=== PATIENT | female | born 1975 | race Asian ===

== ENCOUNTER 2018-05-09 11:50 | Day surgery (SDC) | payer MEDICARE, MEDICAID ==
[2018-05-06 15:19] LABS: BASOPHILS % (AUTO) 0.5 % (0-1); EOSINOPHILS # (AUTO) 0.1 X10'3 (0-0.9); EOSINOPHILS % (AUTO) 2.1 % (0-6); HEMATOCRIT 32.4 % (35.0-45.0); HEMOGLOBIN 10.6 g/dl (12.0-16.0); LYMPHOCYTES # (AUTO) 0.5 X10'3 (1.1-4.8); LYMPHOCYTES % (AUTO) 9.1 % (21-51); MEAN CORPUSCULAR HEMOGLOBIN 31.3 PG (27.0-31.0); MEAN CORPUSCULAR HGB CONC 32.6 g/dL (33.0-36.5); MEAN CORPUSCULAR VOLUME 96.2 FL (78-98); MEAN PLATELET VOLUME 7.5 FL (7.4-10.4); MONOCYTES # (AUTO) 0.5 X10'3 (0-0.9); NEUTROPHILS % (AUTO) 79.3 % (42-75); PLATELET COUNT 139 X10'3 (140-440); RED BLOOD COUNT 3.37 X10'6 (4.20-5.60); RED CELL DISTRIBUTION WIDTH 18.9 % (11.5-14.5); WHITE BLOOD COUNT 5.1 X10'3 (4.5-11.0)
[2018-05-06 15:28] LABS: ALBUMIN 3.4 G/DL (3.4-5.0); ANION GAP 1 (8-16); BLOOD UREA NITROGEN 34 MG/DL (7-18); BUN/CREATININE RATIO 4.2 (6.6-38.0); CALCIUM 10.1 MG/DL (8.5-10.1); CHLORIDE 97 MMOL/L (99-107); CREATININE 8.06 MG/DL (0.40-0.90); GLUCOSE 136 MG/DL (70-104); POTASSIUM 4.9 MMOL/L (3.5-5.1); SODIUM 137 MMOL/L (135-145); TOTAL CARBON DIOXIDE 38.9 MMOL/L (24-32); eGFR 5 ML/MIN
[2018-05-06 15:31] LABS: PARTIAL THROMBOPLASTIN TIME 30 SECONDS (22-32); PROTHROMBIN TIME 10.5 SECONDS (9.0-12.0)
[2018-05-09] VITALS (9 sets, daily range): BP systolic 151–163; BP diastolic 91–95
[~2018-05-09] VITALS: Ht 147.3 cm; Wt 51.8 kg
[2018-05-09] MEDS ORDERED: diphenhydrAMINE 25mg capsule PO ONE (12:10)
[2018-05-09] MEDS ORDERED: LORazepam 0.5 MG tablet PO ONE (12:10)
[2018-05-09] MEDS ORDERED: normal saline 1000ml 1,000 ML IV SCH (12:10)
[2018-05-09] MEDS ORDERED: ACYC-202 PO (13:37)
[2018-05-09] MEDS ORDERED: TACR1CAP28 PO (13:37)
[2018-05-09] MEDS ORDERED: CHOL100046 PO (13:37)
[2018-05-09] MEDS ORDERED: FOLI0.8T22 PO (13:37)
[2018-05-09] MEDS ORDERED: METO50TA17 PO (13:37)
[2018-05-09] MEDS ORDERED: SODI650T29 PO (13:37)
[2018-05-09] MEDS ORDERED: PRED5TAB PO (13:37)
[2018-05-09] MEDS ORDERED: LEVO50TA PO (13:37)
[2018-05-09] MEDS ORDERED: AMLO-94 PO (13:37)
[2018-05-09] MEDS ORDERED: iohexol 350MG/ML 100ml bottle IV ONE (16:17)
[2018-05-09] MEDS ORDERED: LIDOcaine 1% (10mg/ml)w/preservative injection 20ml MDV ONE (16:17)
[2018-05-09] MEDS ORDERED: midazolam 2 mg/2 ml injection ONE (16:17)
[2018-05-09] MEDS ORDERED: fentaNYL/PF 50MCG/1 ML 2ML syringe ONE (16:17)
[2018-05-09] MEDS ORDERED: hydrALAZINE 20mg/ml inj. IV ONE (17:17)
[2018-05-09] MEDS ORDERED: ondansetron/PF 4mg/2ml inj ONE (17:45)
[2018-05-09] MEDS ORDERED: proCHLORperazine 10 MG/2 ml inj IV PRN (18:00)
[2018-05-09] MEDS ORDERED: ondansetron/PF 4mg/2ml inj IV PRN (18:00)
[2018-05-09] MEDS ORDERED: OXAZEpam 15mg capsule PO PRN (18:00)
== END 2018-05-09 20:15 | disposition home or self-care (01) ==
LOC: SSTAY O 11:50
PROVIDERS: ATTEND Internal Medicine Interventional Cardiology
DX: I25.10 Atherosclerotic heart disease of native coronary artery without angina pectoris (principal)
CPT/HCPCS: 36415; 80048; 85025; 85610; 85730; 93005; 93458; 99152; A6257; J0360; J1644; J2001; J2250; J2405; J3010; J7030; Q9967; A4620; C1769

== ENCOUNTER 2019-04-17 13:54 | Day surgery (SDC) | payer MEDICARE, MEDICAID ==
[2019-04-13 11:14] LABS: BASOPHILS % (AUTO) 0.4 % (0-1); EOSINOPHILS # (AUTO) 0.3 X10'3 (0-0.9); EOSINOPHILS % (AUTO) 3.4 % (0-6); HEMATOCRIT 36.9 % (35.0-45.0); HEMOGLOBIN 12.7 g/dl (12.0-16.0); LYMPHOCYTES # (AUTO) 1.4 X10'3 (1.1-4.8); LYMPHOCYTES % (AUTO) 15.5 % (21-51); MEAN CORPUSCULAR HEMOGLOBIN 36.2 PG (27.0-31.0); MEAN CORPUSCULAR HGB CONC 34.3 g/dL (33.0-36.5); MEAN CORPUSCULAR VOLUME 105.8 FL (78-98); MEAN PLATELET VOLUME 7.3 FL (7.4-10.4); MONOCYTES % (AUTO) 11.6 % (2-12); NEUTROPHILS # (AUTO) 6.2 X10'3 (1.8-7.7); NEUTROPHILS % (AUTO) 69.1 % (42-75); PLATELET COUNT 223 X10'3 (140-440); RED BLOOD COUNT 3.49 X10'6 (4.20-5.60); RED CELL DISTRIBUTION WIDTH 13.1 % (11.5-14.5)
[2019-04-13 11:17] LABS: ALBUMIN 3.4 G/DL (3.4-5.0); ANION GAP 11 (8-16); BLOOD UREA NITROGEN 70 MG/DL (7-18); BUN/CREATININE RATIO 7.7 (6.6-38.0); CALCIUM 10.1 MG/DL (8.5-10.1); CHLORIDE 97 MMOL/L (99-107); CREATININE 9.11 MG/DL (0.40-0.90); GLUCOSE 113 MG/DL (70-104); POTASSIUM 4.8 MMOL/L (3.5-5.1); SODIUM 133 MMOL/L (135-145); TOTAL CARBON DIOXIDE 24.6 MMOL/L (24-32); eGFR 5 ML/MIN
[2019-04-13 11:26] LABS: PARTIAL THROMBOPLASTIN TIME 27 SECONDS (22-32)
[~2019-04-17] VITALS: Ht 144.8 cm; Wt 61.9 kg
[~2019-04-17 13:54] MED LIST: ACYC-202 PO; AMLO-94 PO; CHOL100046 PO; FOLI0.8T22 PO; LEVO50TA PO; METO50TA17 PO; PRED5TAB PO; SODI650T29 PO; TACR1CAP28 PO
[2019-04-17] MEDS ORDERED: diphenhydrAMINE 25mg capsule PO PRN (14:20)
[2019-04-17] MEDS ORDERED: LORazepam 0.5 MG tablet PO PRN (14:20)
[2019-04-17] MEDS ORDERED: normal saline 1,000 ML IV SCH (14:20)
[2019-04-17] MEDS ORDERED: METO100T14 PO (14:21)
[2019-04-17] MEDS ORDERED: SEVE800T8 PO (14:22)
[2019-04-17] MEDS ORDERED: LIDOcaine 1% (10mg/ml)w/preservative injection 20ml MDV ONE (16:04)
[2019-04-17] MEDS ORDERED: midazolam 2 mg/2 ml injection ONE (16:04)
[2019-04-17] MEDS ORDERED: fentaNYL/PF 50MCG/1 ML 2ML syringe ONE (16:04)
[2019-04-17] MEDS ORDERED: iohexol 350MG/ML 100ml bottle IV ONE ×2 (16:04→17:03)
--- NOTE | 2019-04-17 16:26 | NUR ---
Patient to OR via luis with technical laboratory asst RN.
[2019-04-17] MEDS ORDERED: ondansetron/PF 4mg/2ml inj ONE (17:13)
[2019-04-17 17:30] VITALS: BP 141/75
--- NOTE | 2019-04-17 17:35 | NUR ---
Pt returned from lab assistant via [place]. vss, awake and alert. c/o nausea, given zofran in lab assistant. Asking for food and ice chips. at bedside
[2019-04-17 17:45] VITALS: BP 127/77
[2019-04-17] MEDS ORDERED: acetaminophen 325mg tablet PO PRN (17:45)
[2019-04-17] MEDS ORDERED: proCHLORperazine 10 MG/2 ml inj IV PRN (17:45)
[2019-04-17] MEDS ORDERED: ondansetron/PF 4mg/2ml inj IV PRN (17:45)
[2019-04-17] MEDS ORDERED: OXAZEpam 15mg capsule PO PRN (17:45)
[2019-04-17 18:00] VITALS: BP 135/74
[2019-04-17 18:15] VITALS: BP 134/75
--- NOTE | 2019-04-17 18:30 | NUR ---
Report given to Erin RIZO
[2019-04-17 19:15] VITALS: BP 106/62
[2019-04-17 20:00] VITALS: BP 100/60
== END 2019-04-17 20:20 | disposition home or self-care (01) ==
LOC: SSTAY O 13:54
PROVIDERS: ATTEND Internal Medicine Interventional Cardiology
DX: Z01.818 Encounter for other preprocedural examination (principal); I25.10 Atherosclerotic heart disease of native coronary artery without angina pectoris; I12.9 Hypertensive chronic kidney disease with stage 1 through stage 4 chronic kidney disease, or unspecified chronic kidney disease; N18.9 Chronic kidney disease, unspecified; I48.91 Unspecified atrial fibrillation; Z88.5 Allergy status to narcotic agent; Z79.899 Other long term (current) drug therapy; Z94.0 Kidney transplant status
CPT/HCPCS: 36415; 80048; 85025; 85610; 85730; 93005; 93458; 93571; 93572; 99152; 99153; C1769; J0780; J1644; J2001; J2250; J2405; J3010; J7030; Q9967; A4620; A6258

== ENCOUNTER 2020-06-11 11:23 | Day surgery (SDC) | payer MEDICARE, MEDICAID ==
[2020-06-06 12:26] LABS: BASOPHILS % (AUTO) 0.5 % (0-1); EOSINOPHILS # (AUTO) 0.1 X10'3 (0-0.9); EOSINOPHILS % (AUTO) 2.4 % (0-6); HEMATOCRIT 37.4 % (35.0-45.0); HEMOGLOBIN 11.9 g/dl (12.0-16.0); LYMPHOCYTES % (AUTO) 17.4 % (21-51); MEAN CORPUSCULAR HEMOGLOBIN 29.4 PG (27.0-31.0); MEAN CORPUSCULAR HGB CONC 31.8 g/dL (33.0-36.5); MEAN CORPUSCULAR VOLUME 92.4 FL (78-98); MEAN PLATELET VOLUME 7.5 FL (7.4-10.4); MONOCYTES # (AUTO) 0.5 X10'3 (0-0.9); MONOCYTES % (AUTO) 7.8 % (2-12); NEUTROPHILS # (AUTO) 4.3 X10'3 (1.8-7.7); NEUTROPHILS % (AUTO) 71.9 % (42-75); PLATELET COUNT 183 X10'3 (140-440); RED BLOOD COUNT 4.05 X10'6 (4.20-5.60); WHITE BLOOD COUNT 5.9 X10'3 (4.5-11.0)
[2020-06-06 12:35] LABS: ALBUMIN 3.7 G/DL (3.4-5.0); ANION GAP 13 (8-16); BLOOD UREA NITROGEN 55 MG/DL (7-18); CALCIUM 9.7 MG/DL (8.5-10.1); CHLORIDE 103 MMOL/L (99-107); CREATININE 9.16 MG/DL (0.40-0.90); GLUCOSE 96 MG/DL (70-104); POTASSIUM 4.9 MMOL/L (3.5-5.1); SODIUM 141 MMOL/L (135-145); TOTAL CARBON DIOXIDE 24.8 MMOL/L (24-32); eGFR 5 ML/MIN
[2020-06-06 12:38] LABS: PARTIAL THROMBOPLASTIN TIME 30 SECONDS (22-32)
[2020-06-11] VITALS (8 sets, daily range): BP systolic 127–150; BP diastolic 78–91
[~2020-06-11] VITALS: Ht 147.3 cm; Wt 64.6 kg
[~2020-06-11 11:23] MED LIST changes: +ACYC-129 PO; -ACYC-202 PO; -CHOL100046 PO; +METO100T14 PO; -METO50TA17 PO; +SEVE800T8 PO; -SODI650T29 PO; +TACR1CAP24 PO; -TACR1CAP28 PO
[2020-06-11] MEDS ORDERED: normal saline 1,000 ML IV SCH (11:40)
[2020-06-11] MEDS ORDERED: LORazepam 0.5 MG tablet PO PRN (11:40)
[2020-06-11] MEDS ORDERED: diphenhydrAMINE 25mg capsule PO PRN (11:40)
[2020-06-11] MEDS ORDERED: ATOR20TA66 PO (12:02)
[2020-06-11] MEDS ORDERED: PHO667C PO (12:02)
[2020-06-11] MEDS ORDERED: AMLO10TA13 PO (12:02)
[2020-06-11] MEDS ORDERED: midazolam 1 mg/ML 2ml injection ONE (12:26)
[2020-06-11] MEDS ORDERED: fentaNYL/PF 50MCG/1 ML 2ML syringe ONE (12:26)
[2020-06-11] MEDS ORDERED: LIDOcaine 1% (10mg/ml)w/preservative injection 20ml MDV ONE (12:26)
[2020-06-11] MEDS ORDERED: iohexol 350MG/ML 100ml bottle IV ONE (12:26)
== END 2020-06-11 16:20 | disposition home or self-care (01) ==
LOC: SSTAY O 11:23
PROVIDERS: ATTEND Internal Medicine Interventional Cardiology
DX: R94.39 Abnormal result of other cardiovascular function study (principal); I25.10 Atherosclerotic heart disease of native coronary artery without angina pectoris; I35.0 Nonrheumatic aortic (valve) stenosis; I12.9 Hypertensive chronic kidney disease with stage 1 through stage 4 chronic kidney disease, or unspecified chronic kidney disease; N18.9 Chronic kidney disease, unspecified; I48.91 Unspecified atrial fibrillation; E78.5 Hyperlipidemia, unspecified; Z94.0 Kidney transplant status; Z88.5 Allergy status to narcotic agent; Z79.899 Other long term (current) drug therapy
CPT/HCPCS: 36415; 80048; 85025; 85610; 85730; 93005; 93458; 99152; A6258; C1769; J1644; J2001; J2250; J3010; J7030; Q0163; Q9967; A4620; A5120